=== PATIENT | female | born 1980 | race African-American/Black ===

== ENCOUNTER 2017-07-04 21:30 | Emergency (ER) | payer OTHER ==
[~2017-07-04] VITALS: Ht 162.6 cm; Wt 95.3 kg
[~2017-07-04 21:30] MED LIST: AUGMENTIN 875875 MG PO; BAYER BACK & B1 EACH; FLEXERIL PO; IBUPROFEN 600600 M1; NAPROSYN500 MG PO; NORCO 5-325 TA1 EACH PO; PEPCID20 MG PO; Q-PAP325 MG; TRAMADOL 50 MG50 MG PO; VITAMIN D2000 UNIT PO
[2017-07-04 22:26] LABS: ABSOLUTE NEUTROPHILS 2.5 thou/uL (1.4-8.2); BASOPHILS 0.6 % (0.0-2.0); EOSINOPHILS 1.3 % (0.0-3.0); HEMATOCRIT 37.2 % (37.0-47.0); HEMOGLOBIN 12.4 gm/dL (12.0-15.0); LYMPHOCYTES 52.5 % (24.0-44.0); MCH 29.7 pg (26.0-34.0); MCHC 33.3 g/dL (28.0-37.0); MONOCYTES 7.7 % (1.0-8.0); PLATELET COUNT 306 thou/uL (150-400); POLYS 37.9 % (36.0-66.0); RBC 4.18 mil/uL (4.20-5.00); RDW 15.5 % (10.5-14.5); WBC 6.6 thou/uL (4.0-11.0)
[2017-07-04 22:27] LABS: MANUAL DIFF NO
[2017-07-04] MEDS ORDERED: PHENERGAN 25 MG25 M1 PO (22:48)
[2017-07-04 23:30] VITALS: BP 137/86
== END 2017-07-04 23:30 | disposition home or self-care (01) ==
LOC: ER 21:30
PROVIDERS: Emergency Medicine
DX: R51 Headache (principal); R20.2 Paresthesia of skin

== ENCOUNTER 2017-07-31 16:09 | Emergency (ER) | payer OTHER ==
[~2017-07-31] VITALS: Ht 162.6 cm; Wt 120.2 kg
[~2017-07-31 16:09] MED LIST changes: +PHENERGAN 25 MG25 M1 PO
[2017-07-31 16:12] VITALS: BP 147/94
[2017-07-31] MEDS ORDERED: CORTISPORIN OTI10 M2 OTIC (16:39)
== END 2017-07-31 17:00 | disposition home or self-care (01) ==
LOC: ER 16:09
DX: H60.92 Unspecified otitis externa, left ear (principal)

== ENCOUNTER 2018-08-19 11:13 | Emergency (ER) | payer OTHER ==
[~2018-08-19] VITALS: Ht 162.6 cm; Wt 114.8 kg
[~2018-08-19 11:13] MED LIST changes: +CORTISPORIN OTI10 M2 OTIC
[2018-08-19] MEDS ORDERED: MOBIC7.5 MG PO (11:57)
[2018-08-19] MEDS ORDERED: AMOXICILLIN 50500 MG PO (11:57)
[2018-08-19] MEDS ORDERED: TESSALON PERLE100 MG PO (11:57)
== END 2018-08-19 12:06 | disposition home or self-care (01) ==
LOC: ER 11:13
DX: H66.91 Otitis media, unspecified, right ear (principal); J02.9 Acute pharyngitis, unspecified

== ENCOUNTER 2018-11-11 06:47 | Emergency (ER) | payer OTHER ==
[~2018-11-11] VITALS: Ht 162.6 cm; Wt 113.0 kg
[~2018-11-11 06:47] MED LIST changes: +AMOXICILLIN 50500 MG PO; +MOBIC7.5 MG PO; +TESSALON PERLE100 MG PO
[2018-11-11] MEDS ORDERED: DIFLUCAN200 MG PO (07:01)
[2018-11-11] MEDS ORDERED: AMOXICILLIN 50500 MG PO (07:01)
[2018-11-11 07:19] LABS: URINE BILIRUBIN NEGATIVE (Negative); URINE BLOOD NEGATIVE (Negative); URINE CLARITY CLEAR; URINE COLOR YELLOW; URINE GLUCOSE-RANDOM* NEGATIVE (Negative); URINE KETONES NEGATIVE (Negative); URINE LEUKOCYTES-REFLEX NEGATIVE (Negative); URINE NITRITE-REFLEX NEGATIVE (Negative); URINE PROTEIN (DIPSTICK) NEGATIVE (Negative); URINE SPECIFIC GRAVITY 1.025 (1.005-1.035); URINE UROBILINOGEN 0.2 E.U./dl (0.2-1.0)
[2018-11-11 08:55] VITALS: BP 133/92
== END 2018-11-11 08:56 | disposition home or self-care (01) ==
LOC: ER 06:47
PROVIDERS: Emergency Medicine
DX: N89.8 Other specified noninflammatory disorders of vagina (principal); M54.9 Dorsalgia, unspecified

== ENCOUNTER → 2020-08-28 | Emergency (ER) | payer OTHER ==
[~2020-08-28] VITALS: Ht 165.1 cm; Wt 117.0 kg
[~2020-08-28] MED LIST changes: +DIFLUCAN200 MG PO
[2020-08-28 16:21] LABS: URINE BILIRUBIN NEGATIVE (Negative); URINE BLOOD NEGATIVE (Negative); URINE CLARITY CLEAR; URINE COLOR YELLOW; URINE GLUCOSE-RANDOM* NEGATIVE (Negative); URINE KETONES NEGATIVE (Negative); URINE LEUKOCYTES-REFLEX NEGATIVE (Negative); URINE NITRITE-REFLEX NEGATIVE (Negative); URINE PROTEIN (DIPSTICK) NEGATIVE (Negative); URINE SPECIFIC GRAVITY >= 1.030 (1.005-1.035); URINE UROBILINOGEN 0.2 E.U./dl (0.2-1.0)
[2020-08-28 16:55] LABS: ABSOLUTE NEUTROPHILS 3.5 thou/uL (1.4-8.2); BASOPHILS 0.9 % (0.0-2.0); HEMATOCRIT 37.8 % (37.0-47.0); HEMOGLOBIN 12.3 gm/dL (12.0-15.0); LYMPHOCYTES 42.4 % (24.0-44.0); MCH 28.9 pg (26.0-34.0); MCHC 32.5 g/dL (28.0-37.0); MONOCYTES 8.9 % (1.0-8.0); PLATELET COUNT 309 thou/uL (150-400); POLYS 46.8 % (36.0-66.0); RBC 4.24 mil/uL (4.20-5.00); RDW 16.8 % (10.5-14.5); WBC 7.5 thou/uL (4.0-11.0)
[2020-08-28 17:18] LABS: CALCIUM 9.6 mg/dL (8.5-10.1); CREATININE 0.9 mg/dL (0.6-1.0); POTASSIUM 3.9 mmol/L (3.5-5.1)
[2020-08-28 17:24] LABS: ALBUMIN 3.9 g/dL (3.4-5.0); TOTAL BILIRUBIN 0.5 mg/dL (0.2-1.0); TOTAL PROTEIN 8.4 g/dL (6.4-8.2)
[2020-08-28 18:15] VITALS: BP 113/62
== END ==
LOC: ER 16:06
PROVIDERS: Emergency Medicine
DX: R10.31 Right lower quadrant pain (principal); R10.32 Left lower quadrant pain; Z53.21 Procedure and treatment not carried out due to patient leaving prior to being seen by health care provider

== ENCOUNTER 2021-03-28 13:55 | Emergency (ER) | payer OTHER ==
[~2021-03-28] VITALS: Ht 162.6 cm; Wt 118.4 kg
[2021-03-28] MEDS ORDERED: CYCLOBENZAPRINE5 MG PO (16:26)
[2021-03-28 16:40] VITALS: BP 127/75
== END 2021-03-28 16:40 | disposition home or self-care (01) ==
LOC: ER 13:55
DX: S80.812A Abrasion, left lower leg, initial encounter (principal); M25.512 Pain in left shoulder; M25.572 Pain in left ankle and joints of left foot; M54.9 Dorsalgia, unspecified; Z98.51 Tubal ligation status; W20.8XXA Other cause of strike by thrown, projected or falling object, initial encounter; Y93.89 Activity, other specified; Y92.89 Other specified places as the place of occurrence of the external cause; Y99.8 Other external cause status